=== PATIENT | female | born 1990 | race Caucasian/White ===

== ENCOUNTER → 2016-08-22 | Outpatient (CLI) | payer BC ==
[~2016-08-22] MED LIST: CIPR-255 PO; OXYC-57 PO; OXYC1TAB3 PO
== END | disposition home or self-care (01) ==
LOC: C.LABSPEC 11:18
PROVIDERS: ATTEND Nurse Practitioner Family
DX: N20.0 Calculus of kidney (principal); R39.9 Unspecified symptoms and signs involving the genitourinary system

== ENCOUNTER → 2016-09-11 | Day surgery (SDC) | payer BC ==
[2016-08-26 12:18] LABS: BASO % 0.5 %; BASO ABS # 0.03 K/uL (0-0.2); COMPLETE YES; EOS % 0.3 %; HEMATOCRIT 42.1 % (37-47); IG% 0.5 %; LYMPH % 22.3 %; LYMPH ABS # 1.33 K/uL (1.2-3.4); MEAN CELL VOLUME 88.3 fL (80-100); MEAN CORPUSCULAR HEMOGLOBIN 31.2 pg (25-34); MEAN CORPUSCULAR HGB CONC 35.4 g/dl (32-36); MEAN PLATELET VOLUME 10.1 fL (7.4-10.4); MONO % 10.6 %; NEUT % 65.8 %; PLATELET COUNT 309 K/uL (130-400); RED BLOOD COUNT 4.77 M/uL (4.2-5.4); WHITE BLOOD COUNT 5.97 K/uL (4.8-10.8)
--- NOTE | 2016-08-26 16:35 | HISTORY & PHYSICAL EXAMINATION ---
DATE OF ADMISSION: 09/11/2016 CHIEF COMPLAINT: Desires sterilization. HISTORY OF PRESENT ILLNESS: The patient is a 25-year-old white female 1, para 1, x1, who is using nothing for control currently. She is sexually active and has no issues. She is . Her is 27 years old and he is the father of her only child and this is his only child. They have used no other methods of contraception in the past and they had oops for their first child. They had a scale over the summer and realized that they truly do not want any more children. She has periods every 4-6 weeks without issue. PAST OBSTETRICAL AND GYNECOLOGICAL HISTORY: As noted above. ACTIVE MEDICAL PROBLEMS: The patient has a history of microscopic hematuria, nephrolithiasis as well as sciatica. She has a history of an ASCUS Pap smear and HPV positive test. PAST SURGICAL HISTORY: Includes wisdom teeth extraction. FAMILY HISTORY: Significant with a paternal grandfather with brain tumor. There is no family history of breast cancer, colon cancer or ovarian cancer. There is a family history of diabetes. SOCIAL HISTORY: The patient denies smoking. She uses alcohol socially. She is currently . MEDICATIONS: She is not on medication currently. ALLERGIES: AMOXICILLIN, PENICILLIN AND SULFA DRUGS. PHYSICAL EXAMINATION: GENERAL: This is a well-developed and well-nourished white female in no acute distress. VITAL SIGNS: Blood pressure 120/78, height 5 feet 3 inches, and weight 202 pounds. NECK: Supple without thyromegaly or lymphadenopathy. CHEST: Clear to auscultation bilaterally. CARDIOVASCULAR: Regular rate and rhythm without murmurs, gallops or rubs. BACK: Without costovertebral angle tenderness. ABDOMEN: Soft, nontender, and nondistended without appreciable masses. EXTREMITIES: Benign. ASSESSMENT: This is a 25-year-old white female 1, para 1, who desires permanent surgical sterilization. We discussed the other options for contraception including barriers, hormones, long-term reversible contraceptives, laparoscopic tubal sterilization, and Essure vasectomy. The risks, benefits, and side effects were all discussed. The patient clearly understands the risk of regret and ectopic with sterilization. She understands that long-term reversible contraceptive is as effective as sterilization and reversible. They are sure that they are done with children and she wishes to proceed with laparoscopic tubal sterilization. The risks of surgery were discussed with the patient including the risks of anesthesia, bleeding requiring transfusion, infection, poor wound healing, damage to surrounding structures including bowel, bladder, vessels, nerves and ureters that may require further surgery, hospitalization or intervention. The other risks of surgery were discussed with the patient including heart attack, blood clot, stroke or . Surgery is planned for September 11. [facility]
[2016-08-29 11:48] VITALS: Ht 160 cm; Wt 90.9 kg
[~2016-09-11] VITALS: Ht 160 cm; Wt 90.9 kg
[~2016-09-11] MED LIST changes: +ATROPINE SULFATE 0.1 MG/ML 5ML SYR IV PRN; +BUPIVACAINE 0.5 % 5 MG/1 ML MPF 30ML VIAL ONE; -CIPR-255 PO; +DEXAMETHASONE SOD INJ 4 MG/ML VIAL ONE; +FENTANYL CITRATE INJ 50 MCG/1 ML 2 ML VIAL ONE; +HYDROCODONE/ACETAMOPHEN 5/325MG TAB PO PRN; +IBUPROFEN 600 MG TAB PO PRN; +KETOROLAC TROMETHAMINE 30 MG/ML VIAL IV. PRN; +LACTATED RINGER'S 1000ML 1,000 ML IV SCH; +LIDOCAINE HCL 2% 2 ML VIAL (20MG/ML) ONE; +MIDAZOLAM HCL 1 MG/ML 2ML VIAL ONE; +MoRPHine SULFATE 2 MG/ML CARP IV PRN; +MoRPHine SULFATE 4 MG/ML 1 ML CARP\\VIAL IV PRN; +NEOSTIGMINE METHYLSULFATE 5 MG/5 ML SYR ONE; +ONDANSETRON INJ 2 MG/ML 2 ML VIAL IV PRN; +ONDANSETRON INJ 2 MG/ML 2 ML VIAL ONE; -OXYC1TAB3 PO; +OXYCODONE/ACETAMINOPHEN 5-325 TAB PO PRN; +PROPOFOL IV EMULSION 10 MG/ML 20 ML VIAL IV ONE; +ROCURONIUM BROMIDE 10 MG/ML 5 ML VIAL ONE; +SODIUM CHLORIDE 0.9% 1000ML 1,000 ML IV SCH
--- NOTE | 2016-09-11 12:22 | History & Physical Bridge - [place] ---
H&P Re-Evaluation Bridge Note: I have examined the patient, reviewed the History & Physical and in the interval since the performance of the History & Physical I have noted the following changes of clinical significance: No changes noted
--- NOTE | 2016-09-11 13:36 | Discharge Instructions ---
Discharge Instructions Visit Reason for Visit: Encounter For Sterilization,Z01.818 Discharge Discharge Diagnosis / Problem: s/p laproscopic tubal sterilization Discharge Goals Goal(s): Specific goals Activity Recommendations Activity Limitations: per Instructions/Follow-up section Anesthesia . Post Anesthesia Instructions: If you have had General Anesthesia or IV Sedation: * Do not drive today. * Resume driving when surgeon permits. * Do not make important decisions or sign legal documents today. * Call surgeon for: 1. Temperature elevations greater than 101 degrees F. 2. Uncontrollable pain. 3. Excessive bleeding. 4. Persistent nausea and vomiting. 5. Medication intolerance (nausea, vomiting or rash). * For nausea and vomiting use only clear liquids such as: tea, soda, bouillon until nausea subsides, then gradually increase diet as tolerated. * If you have any concerns or questions, call your surgeon's office. If physician is unavailable and it is an emergency, call 911 or go to the nearest emergency room. . Instructions / Follow-Up Instructions / Follow-Up ACTIVITY RECOMMENDATIONS: * Rest the first 2-3 days. You should be back to your normal activity levels by day 3. * No heavy lifting for 2 weeks. * No intercourse, tampons or douching for 1-2 weeks. * You may shower the next day. * Do not drive anytime that you are taking narcotic pain medicines. RETURN TO SCHOOL/WORK: * May return to school or work after 2-3 days. DIET: Nausea may occur in the immediate post-operative period. If so, take clear liquids such as tea, bouillon, apple juice until all nausea has subsided, then resume usual diet. MEDICATIONS: Resume previous medications unless instructed otherwise by your surgeon. Ibuprofen 200mg 2-3 tablets every 4-6 hours as needed -- OR -- Aleve 2 tablets every 8-12 hours as needed for post-operative discomfort Medications are over the counter. Tylenol may be used if above medications are contraindicated or not preferred. Medication should be taken with food or milk. Do not take on an empty stomach. SPECIAL CARE INSTRUCTIONS: * Check temperature twice daily for one week. report any elevation over 101 degrees. * You may experience some vagina spotting and/or bleeding. This is normal for 1 -2 weeks and should not be heavier than a normal period. If it is unusual in amount, call your physician. * Post-operative discomfort may consist of a sore throat, a "bloated" feeling and pain in the shoulders. these are normal symptoms, which usually only last for 2-3 days. * Remove band-aids tomorrow and shower. There is no need to replace band-aids unless there is drainage or discomfort. FOLLOW UP VISIT: Call your doctor's office for a post-operative 2 week visit if not already scheduled. Diet Recommendations Recommended Home Diet: no limitations, resume previous diet Procedures Procedures Performed: Laparoscopic Tubal Sterilization Pending Studies Studies pending at discharge: no Medical Emergencies . Who to Call and When: Medical Emergencies: If at any time you feel your situation is an emergency, please call 911 immediately. . Non-Emergent Contact Non-Emergency issues call your: Valve Mechanic . . "Provider Documentation" section prepared by Danelle Buckner.
--- NOTE | 2016-09-11 13:38 | [facility] Post Operative Brief Note ---
Immediate Operative Summary Operative Date Sep 11, 2016. Pre-Operative Diagnosis Desires Sterilization Post-Operative Diagnosis Same Procedure(s) Performed Laparoscopic Tubal Sterilization Surgeon Dr. Buckner Pipe Fitter Marine Surgeon(s) Blaine Dowell, MS3 Estimated Blood Loss 5ml Findings nl utx, tubes, ovs bilaterally, nl liver edge, stomach. gallbladder and appendix not seen. Fluids (cc crystalloids) 800cc Specimens None Drains none Anesthesia gett Complication(s) None Disposition Recovery Room / PACU
[2016-09-11] MEDS: FENTANYL CITRATE INJ 50 MCG/1 ML 2 ML VIAL IV PRN ×2 (13:48→14:17)
[2016-09-11 14:45] VITALS: TEMP 36.5
--- NOTE | 2016-09-11 14:57 | Anesthesia Progress Nt - [facility] ---
Anesthesia Post Op Note Date & Time Sep 11, 2016 at 14:57 Vital Signs Pain Intensity: 2 Vital Signs Past 12 Hours Date Time Temp Pulse Resp B/P Pulse Ox O2 Delivery O2 Flow Rate FiO2 09/11/16 14:45 36.5 59 18 115/76 94 09/11/16 14:27 54 17 96 09/11/16 14:27 54 17 09/11/16 14:26 36.8 60 20 108/66 96 Room Air 09/11/16 14:23 108/66 09/11/16 14:22 54 14 09/11/16 14:22 54 14 94 09/11/16 14:18 112/68 09/11/16 14:17 60 18 09/11/16 14:17 60 18 98 09/11/16 14:13 127/78 09/11/16 14:12 80 20 09/11/16 14:12 82 20 100 09/11/16 14:08 118/79 09/11/16 14:07 57 20 100 09/11/16 14:07 56 20 09/11/16 14:03 114/75 09/11/16 14:02 55 18 100 09/11/16 14:02 55 18 09/11/16 13:58 123/79 09/11/16 13:57 55 17 09/11/16 13:57 56 17 100 09/11/16 13:53 125/80 09/11/16 13:52 55 23 09/11/16 13:52 55 23 100 09/11/16 13:48 120/83 09/11/16 13:47 60 18 100 09/11/16 13:47 59 18 09/11/16 13:43 140/99 09/11/16 13:42 75 20 100 09/11/16 13:42 76 20 09/11/16 13:42 37.3 85 20 142/97 100 Mask 6 09/11/16 11:46 36.9 84 16 114/76 96 Room Air Notes Mental Status: alert / awake / arousable, participated in evaluation Pt Amnestic to Procedure: Yes Nausea / Vomiting: adequately controlled Pain: adequately controlled Airway Patency, RR, SpO2: stable & adequate BP & HR: stable & adequate Hydration State: stable & adequate Anesthetic Complications: no major complications apparent
[2016-09-11 15:01] VITALS: BP 117/82; PULSE 66; O2SAT 94
--- NOTE | 2016-09-11 16:07 | Medical Student: [facility] ---
Operative Report Operative Date Sep 11, 2016. Pre-Operative Diagnosis sterilization Post-Operative Diagnosis sterilization Procedure(s) Performed 25 year old female undergoing bilateral laparoscopic tubal ligation for desired sterilization. Previously counseled by Dr. Buckner on other methods of control including barriers, hormones, LTRC, lts, essure, and vasectomy for partner. While risk for regret increases with age <25, divorce or change in partners, low socioeconomic standing, pressure from partner she still desiress tubal ligation. She understands the risk of ectopic as well. Does not want LTRC such as IUD despite these being as effective in preventing and also reversible. Her past medical history is significant for HPV positive DNA test and pap smear of cervix with atypical squamous cells of undetermined significance in October 2015, UTIs, and calculi. Allergies to amoxicillin, penicillins, and sulfa drugs. She is sexually active with her and uses contraception infrequently with only one "scare" over the summer. Family history of breast, colon, and ovarian cancer. Surgeon Dr. Buckner Estimated Blood Loss 5ml Fluids (cc crystalloids) 800cc Specimens none Anesthesia General Complication(s) None Disposition Recovery Room / PACU
--- NOTE | 2016-09-11 17:45 | OPERATIVE REPORT ---
DATE OF OPERATION: 09/11/2016 PREOPERATIVE DIAGNOSIS: Desires permanent surgical sterilization. POSTOPERATIVE DIAGNOSIS: Same. PROCEDURE: Laparoscopic tubal sterilization. SURGEON: Dr. Buckner. WOOD LATHE OPERATOR: Blaine Dowell MS3. ANESTHESIA: General per endotracheal tube. ESTIMATED BLOOD LOSS: 5 mL. FLUIDS: 800 mL. INDICATIONS: The patient is a 25-year-old G1, P1 who desires permanent surgical sterilization. She is counseled regarding all her options, understands the high risk of regret and desires to proceed. FINDINGS: Normal uterus, tubes, and ovaries were noted bilaterally. However, the uterus was on the top normal size. Liver edge and stomach were normal. Gallbladder and appendix were not visualized. COMPLICATIONS: None. DRAINS: None. DISPOSITION: To recovery room in stable condition. PROCEDURE IN DETAIL: The patient was taken to the operating room where she was identified verbally and by bracelet. She was placed in dorsal supine position where general anesthesia was induced without difficulty. She was then placed in dorsal lithotomy position in [facility] stirrups and prepped and draped in normal sterile fashion. Timeout was held, identifying correct patient, procedure and positioning. Attention was turned to the perineum where a Blum catheter was placed in the bladder. A weighted speculum was placed in the posterior vagina. The anterior lip of the cervix was grasped with single tooth tenaculum and a Smish uterine manipulator was placed into the cervix to serve as a means of manipulation. Gloves were then changed. Attention was then turned to the abdomen where an infraumbilical incision was made with the knife. Veress needle was placed through this x3, all with opening pressures greater than 10 mmHg. Decision made to cut down and use Nel trocar. So using curved clamps, the fascia was grasped and incised with the scissors. A suture was placed through this to stay for further identification. The peritoneum was then grasped bilaterally and entered sharply with scissors. Direct peritoneal entry was visualized. The Nel trocar was placed through this. The abdomen was insufflated with gas and the patient was placed into Trendelenburg position. Pelvic anatomy as noted above. First on the right and then on the left, Kleppinger bipolar cautery were used to cauterize at least a 2 cm segment of tube. The procedure was then terminated. All trocars were removed from the abdomen as soon as the abdomen was released of carbon dioxide gas. The fascial incision on the infraumbilical incision was reapproximated with 0 Vicryl in a running locked fashion and then the skin of all the incisions was closed with 4-0 Vicryl in a subcuticular fashion. Attention was then turned to the perineum where all instruments were removed from the vagina and hemostasis was noted to be excellent. All sponge, lap and needle counts were correct x2. The patient tolerated the procedure well and was taken to the recovery room in stable condition. I attest to the content of the Intraoperative Record and any orders documented therein. Any exceptio ns are noted below.
== END | disposition home or self-care (01) ==
LOC: X.SURG 11:39
PROVIDERS: ATTEND Obstetrics & Gynecology
DX: Z30.2 Encounter for sterilization (principal); R31.29 Other microscopic hematuria; N20.0 Calculus of kidney; M54.30 Sciatica, unspecified side; Z88.0 Allergy status to penicillin; Z88.1 Allergy status to other antibiotic agents

== ENCOUNTER → 2017-02-06 | Outpatient (CLI) | payer BC ==
[~2017-02-06] MED LIST changes: -ATROPINE SULFATE 0.1 MG/ML 5ML SYR IV PRN; -BUPIVACAINE 0.5 % 5 MG/1 ML MPF 30ML VIAL ONE; -DEXAMETHASONE SOD INJ 4 MG/ML VIAL ONE; -FENTANYL CITRATE INJ 50 MCG/1 ML 2 ML VIAL ONE; -HYDROCODONE/ACETAMOPHEN 5/325MG TAB PO PRN; -IBUPROFEN 600 MG TAB PO PRN; -KETOROLAC TROMETHAMINE 30 MG/ML VIAL IV. PRN; -LACTATED RINGER'S 1000ML 1,000 ML IV SCH; -LIDOCAINE HCL 2% 2 ML VIAL (20MG/ML) ONE; -MIDAZOLAM HCL 1 MG/ML 2ML VIAL ONE; -MoRPHine SULFATE 2 MG/ML CARP IV PRN; -MoRPHine SULFATE 4 MG/ML 1 ML CARP\\VIAL IV PRN; -NEOSTIGMINE METHYLSULFATE 5 MG/5 ML SYR ONE; -ONDANSETRON INJ 2 MG/ML 2 ML VIAL IV PRN; -ONDANSETRON INJ 2 MG/ML 2 ML VIAL ONE; -OXYCODONE/ACETAMINOPHEN 5-325 TAB PO PRN; -PROPOFOL IV EMULSION 10 MG/ML 20 ML VIAL IV ONE; -ROCURONIUM BROMIDE 10 MG/ML 5 ML VIAL ONE; -SODIUM CHLORIDE 0.9% 1000ML 1,000 ML IV SCH
== END | disposition home or self-care (01) ==
LOC: C.PAPS 13:43
PROVIDERS: ATTEND Obstetrics & Gynecology
DX: R39.9 Unspecified symptoms and signs involving the genitourinary system (principal)

== ENCOUNTER → 2017-07-09 | Outpatient (CLI) | payer BC ==
[2017-07-09 14:38] LABS: URINE APPEARANCE CLEAR (CLEAR); URINE BILIRUBIN NEG (NEG); URINE COLOR YELLOW; URINE EPITHELIAL CELL AUTO >30 /lpf (0-5); URINE NITRITE NEG (NEG); URINE PH 5.5 (4.5-7.5); URINE SPECIFIC GRAVITY 1.021 (1.000-1.030); UROBILINOGEN NEG (NEG)
[2017-07-09 14:45] LABS: MANUAL MICROSCOPIC REQUIRED? NO; REVIEW REQ? NO
== END | disposition home or self-care (01) ==
LOC: C.LABSPEC 13:32
PROVIDERS: ATTEND Physician Assistant
DX: R39.9 Unspecified symptoms and signs involving the genitourinary system (principal); N89.8 Other specified noninflammatory disorders of vagina

== ENCOUNTER → 2017-08-20 | Outpatient (CLI) | payer BC ==
--- NOTE | 2017-08-20 09:37 | DIAGNOSTIC IMAGING REPORT ---
KUB CLINICAL HISTORY: N20.0 [id number] nephrocalcinosis COMPARISON STUDY: CT 07/26/2016 FINDINGS: Nonobstructive bowel pattern. 2 mm nonobstructing renal cortical calcifications bilaterally. Somewhat compromised exam due to overlying bowel content. No significant paravertebral or soft tissue pelvic calcifications. IMPRESSION: 1. Punctate bilateral nonobstructing nephrocalcinosis. 2. No significant ureteral or soft tissue pelvic calcifications. The above report was generated using voice recognition software. It may contain grammatical, syntax or spelling errors. Electronically signed by: Gavin Dunbar M.D. 08/20/2017 9:36 AM Dictated Date/Time: 08/20/2017 9:35 AM
== END | disposition home or self-care (01) ==
LOC: C.RAD 09:09
PROVIDERS: ATTEND Urology
DX: N20.0 Calculus of kidney (principal)